=== PATIENT | male | born 1950 | race Caucasian/White ===

== ENCOUNTER 2017-09-13 14:53 | Inpatient (IN) | payer MEDICARE, OTHER ==
[2017-09-13 15:32] LABS: ADD MAN DIFF? NO
[2017-09-13 15:33] LABS: LYMPH % 20 % (24-48); MEAN CORPUSCULAR HEMOGLOBIN 31 pg (25-35); MEAN CORPUSCULAR HGB CONC 34 g/dL (31-37); MEAN CORPUSCULAR VOLUME 92 fL (79-100); NEUT % 67 % (31-73); PLATELET COUNT 129 x10^3/uL (140-400); RED BLOOD COUNT 3.27 x10^6/uL (4.30-5.70); RED CELL DISTRIBUTION WIDTH 12.5 % (11.5-14.5); WHITE BLOOD COUNT 5.4 x10^3/uL (4.0-11.0)
[2017-09-13 15:34] LABS: BASO # 0.1 x10^3/uL (0.0-0.2); BASO % 1 % (0-3); EOS # 0.2 x10^3/uL (0.0-0.7); EOS % 3 % (0-3); LYMPH # 1.1 x10^3/uL (1.0-4.8); MONO # 0.5 x10^3/uL (0.0-1.1); MONO % 9 % (0-9); NEUT # 3.6 x10^3uL (1.8-7.7)
[2017-09-13 15:37] LABS: BILIRUBIN,URINE NEGATIVE (NEG); CLARITY,URINE CLEAR; COLOR,URINE YELLOW; GLUCOSE,URINE NEGATIVE (NEG); NITRITE,URINE NEGATIVE (NEG); PH,URINE 5.5; PROTEIN,URINE NEGATIVE (NEG-TRACE); UROBILINOGEN,URINE 0.2 mg/dL (0.2 mg/dL)
[2017-09-13 15:44] LABS: ANION GAP 13 (6-14); BLOOD UREA NITROGEN 81 mg/dL (8-26); BUN/CREATININE RATIO 25 (6-20); CALCIUM 8.8 mg/dL (8.5-10.1); CARBON DIOXIDE 19 mmol/L (21-32); CHLORIDE 102 mmol/L (98-107); CREATININE 3.2 mg/dL (0.7-1.3); GFR 19.5; GLUCOSE 85 mg/dL (70-99); POTASSIUM 5.7 mmol/L (3.5-5.1); SODIUM 134 mmol/L (136-145)
[2017-09-13 15:51] LABS: ALBUMIN 3.7 g/dL (3.4-5.0); ALBUMIN/GLOBULIN RATIO 0.9 (1.0-1.7); ALK PHOS 61 U/L (46-116); ALT (SGPT) 25 U/L (16-63); AST (SGOT) 18 U/L (15-37); TOTAL BILIRUBIN 0.3 mg/dL (0.2-1.0); TOTAL PROTEIN 7.9 g/dL (6.4-8.2)
[2017-09-13 15:52] LABS: WBC,URINE 0 /HPF (0-4)
[2017-09-13 15:53] LABS: BACTERIA,URINE 0 /HPF (0-FEW); SQUAMOUS EPITHELIAL CELL,UR FEW /LPF
[2017-09-13] MEDS ORDERED: MORPHINE SULFATE 4 MG/ML DISP.SYRIN. IV (16:45)
[2017-09-13] MEDS: IV NORMAL SALINE 1000ML BAG 1,000 ML IV ×2 (16:45→23:13)
[2017-09-13] MEDS ORDERED: ONDANSETRON PF 4 MG/2 ML VIAL. IV (16:45)
[2017-09-13] MEDS ORDERED: DEXTROSE 50% 25 GM / 50ML DISP.SYRIN. IV (18:30)
[2017-09-13] MEDS: INSULIN LISPRO 300 UNITS/3 ML INSULN.PEN. SQ (19:00)
[2017-09-13 19:35] LABS: THYROID STIM HORMONE (TSH) 2.436 uIU/mL (0.358-3.74)
[2017-09-13 21:25] LABS: POC GLUCOSE 95 mg/dL (70-99)
[2017-09-13] MEDS: traMADol 50 MG TABLET PO (22:39)
[2017-09-13] MEDS: LACTOBACILLUS RHAMNOSUS GG 1 CAPSULE. PO (22:39)
[2017-09-13] MEDS: ATORVASTATIN CALCIUM 10 MG TABLET. PO (22:39)
[2017-09-13] MEDS: GABAPENTIN 100 MG CAPSULE. PO (22:39)
[2017-09-13] MEDS: ACETAMINOPHEN 500 MG TABLET PO (22:39)
[2017-09-14] MEDS: LEVOTHYROXINE 137 MCG TABLET PO (05:53)
[2017-09-14 06:19] LABS: ADD MAN DIFF? NO
[2017-09-14 06:36] LABS: ANION GAP 10 (6-14); BLOOD UREA NITROGEN 74 mg/dL (8-26); CALCIUM 8.4 mg/dL (8.5-10.1); CARBON DIOXIDE 20 mmol/L (21-32); CHLORIDE 104 mmol/L (98-107); GLUCOSE 85 mg/dL (70-99); SODIUM 134 mmol/L (136-145)
[2017-09-14 06:40] LABS: BASO # 0.1 x10^3/uL (0.0-0.2); BASO % 1 % (0-3); EOS # 0.2 x10^3/uL (0.0-0.7); EOS % 3 % (0-3); HEMATOCRIT 28.5 % (39.0-53.0); HEMOGLOBIN 9.7 g/dL (13.0-17.5); LYMPH # 1.4 x10^3/uL (1.0-4.8); LYMPH % 23 % (24-48); MEAN CORPUSCULAR HEMOGLOBIN 31 pg (25-35); MEAN CORPUSCULAR HGB CONC 34 g/dL (31-37); MEAN CORPUSCULAR VOLUME 91 fL (79-100); MONO # 0.7 x10^3/uL (0.0-1.1); MONO % 11 % (0-9); NEUT % 62 % (31-73); PLATELET COUNT 121 x10^3/uL (140-400); RED BLOOD COUNT 3.12 x10^6/uL (4.30-5.70); RED CELL DISTRIBUTION WIDTH 12.4 % (11.5-14.5); WHITE BLOOD COUNT 6.4 x10^3/uL (4.0-11.0)
[2017-09-14] MEDS: INSULIN LISPRO 300 UNITS/3 ML INSULN.PEN. SQ ×3 (07:37→17:00)
[2017-09-14 07:41] LABS: POC GLUCOSE 77 mg/dL (70-99)
[2017-09-14] MEDS: GABAPENTIN 100 MG CAPSULE. PO ×3 (08:50→20:17)
[2017-09-14] MEDS: FLUoxetine HCL 20 MG CAPSULE PO (08:50)
[2017-09-14] MEDS: amLODIPine BESYLATE 10 MG TABLET PO (08:50)
[2017-09-14] MEDS: ACETAMINOPHEN 500 MG TABLET PO ×2 (08:51→20:17)
[2017-09-14] MEDS: TAMSULOSIN 0.4 MG CAP.ER.24H. PO (08:51)
[2017-09-14] MEDS: LACTOBACILLUS RHAMNOSUS GG 1 CAPSULE. PO ×2 (08:51→20:16)
[2017-09-14] MEDS: SODIUM POLYSTYRENE SULFONATE 15 GM/60 ML ORAL.SUSP. PO (10:55)
[2017-09-14 11:14] LABS: POC GLUCOSE 92 mg/dL (70-99)
[2017-09-14] MEDS: ALBUTEROL SULFATE 2.5 MG/3 ML NEBU. NEB (11:26)
[2017-09-14] MEDS: IV NORMAL SALINE 1000ML BAG 1,000 ML IV ×2 (12:50→21:55)
[2017-09-14] MEDS ORDERED: hydrALAZINE 20 MG/ML VIAL. IVP (13:15)
[2017-09-14] MEDS: traMADol 50 MG TABLET PO (13:57)
[2017-09-14 16:52] LABS: POC GLUCOSE 115 mg/dL (70-99)
[2017-09-14] MEDS: ATORVASTATIN CALCIUM 10 MG TABLET. PO (20:17)
[2017-09-15] MEDS: traMADol 50 MG TABLET PO ×2 (02:10→20:52)
[2017-09-15 02:19] LABS: HEMOGLOBIN A1C 4.6 % (4.8-5.6)
[2017-09-15 04:11] LABS: ANION GAP 10 (6-14); BLOOD UREA NITROGEN 56 mg/dL (8-26); CALCIUM 8.5 mg/dL (8.5-10.1); CARBON DIOXIDE 20 mmol/L (21-32); CHLORIDE 106 mmol/L (98-107); CREATININE 2.2 mg/dL (0.7-1.3); GFR 30.1; GLUCOSE 90 mg/dL (70-99); SODIUM 136 mmol/L (136-145)
[2017-09-15] MEDS: LEVOTHYROXINE 137 MCG TABLET PO (05:37)
[2017-09-15 07:39] LABS: POC GLUCOSE 84 mg/dL (70-99)
[2017-09-15] MEDS: LACTOBACILLUS RHAMNOSUS GG 1 CAPSULE. PO ×2 (07:58→20:51)
[2017-09-15] MEDS: amLODIPine BESYLATE 10 MG TABLET PO (07:58)
[2017-09-15] MEDS: ACETAMINOPHEN 500 MG TABLET PO ×3 (07:58→20:52)
[2017-09-15] MEDS: TAMSULOSIN 0.4 MG CAP.ER.24H. PO (07:58)
[2017-09-15] MEDS: FLUoxetine HCL 20 MG CAPSULE PO (07:58)
[2017-09-15] MEDS: GABAPENTIN 100 MG CAPSULE. PO ×3 (07:59→20:51)
[2017-09-15] MEDS: IV NORMAL SALINE 1000ML BAG 1,000 ML IV ×2 (07:59→17:54)
[2017-09-15] MEDS: INSULIN LISPRO 300 UNITS/3 ML INSULN.PEN. SQ ×3 (07:59→17:00)
[2017-09-15 11:13] LABS: POC GLUCOSE 81 mg/dL (70-99)
[2017-09-15 16:27] LABS: POC GLUCOSE 96 mg/dL (70-99)
[2017-09-15 20:46] LABS: POC GLUCOSE 100 mg/dL (70-99)
[2017-09-15] MEDS: ATORVASTATIN CALCIUM 10 MG TABLET. PO (20:51)
[2017-09-16] MEDS: IV NORMAL SALINE 1000ML BAG 1,000 ML IV ×2 (03:00→13:00)
[2017-09-16 04:44] LABS: ANION GAP 9 (6-14); BLOOD UREA NITROGEN 37 mg/dL (8-26); CALCIUM 8.6 mg/dL (8.5-10.1); CARBON DIOXIDE 21 mmol/L (21-32); CHLORIDE 108 mmol/L (98-107); CREATININE 1.9 mg/dL (0.7-1.3); GFR 35.6; GLUCOSE 87 mg/dL (70-99); POTASSIUM 5.2 mmol/L (3.5-5.1); SODIUM 138 mmol/L (136-145)
[2017-09-16] MEDS: LEVOTHYROXINE 137 MCG TABLET PO (06:29)
[2017-09-16 07:50] LABS: POC GLUCOSE 79 mg/dL (70-99)
[2017-09-16] MEDS: INSULIN LISPRO 300 UNITS/3 ML INSULN.PEN. SQ ×2 (08:00→11:49)
[2017-09-16] MEDS: TAMSULOSIN 0.4 MG CAP.ER.24H. PO (08:21)
[2017-09-16] MEDS: GABAPENTIN 100 MG CAPSULE. PO ×2 (08:22→15:12)
[2017-09-16] MEDS: ACETAMINOPHEN 500 MG TABLET PO ×2 (08:23→15:11)
[2017-09-16] MEDS: traMADol 50 MG TABLET PO (08:24)
[2017-09-16] MEDS: FLUoxetine HCL 20 MG CAPSULE PO (08:25)
[2017-09-16] MEDS: amLODIPine BESYLATE 10 MG TABLET PO (08:25)
[2017-09-16] MEDS: LACTOBACILLUS RHAMNOSUS GG 1 CAPSULE. PO (08:26)
[2017-09-16] MEDS: FUROSEMIDE 20 MG TABLET PO (11:18)
[2017-09-16 11:46] LABS: POC GLUCOSE 84 mg/dL (70-99)
[2017-09-17] MEDS ORDERED: amLODIPine BESYLATE 5 MG TABLET PO (09:00)
[2017-09-19] MEDS ORDERED: ERGOCALCIFEROL (VITAMIN D2) 50,000 UNIT CAPSULE. PO (09:00)
== END 2017-09-16 17:00 | disposition home or self-care (01) | DRG 683 ==
LOC: ER 14:53 → 5 NORTH 16:23
DX: N17.0 Acute kidney failure with tubular necrosis (principal); I50.32 Chronic diastolic (congestive) heart failure; Z68.43 Body mass index [BMI] 50.0-59.9, adult; E87.5 Hyperkalemia; I11.0 Hypertensive heart disease with heart failure; E66.01 Morbid (severe) obesity due to excess calories; E03.9 Hypothyroidism, unspecified; E11.42 Type 2 diabetes mellitus with diabetic polyneuropathy; N40.0 Benign prostatic hyperplasia without lower urinary tract symptoms; E78.00 Pure hypercholesterolemia, unspecified; E78.5 Hyperlipidemia, unspecified; F32.9 Major depressive disorder, single episode, unspecified; G47.33 Obstructive sleep apnea (adult) (pediatric); I25.10 Atherosclerotic heart disease of native coronary artery without angina pectoris; I89.0 Lymphedema, not elsewhere classified; M19.90 Unspecified osteoarthritis, unspecified site; R00.1 Bradycardia, unspecified; Z90.89 Acquired absence of other organs; Z88.0 Allergy status to penicillin
CPT/HCPCS: 36415; 76770; 80048; 80053; 81001; 82962; 83036; 84443; 85025; 93005; 94660; 99285; 99285-25; J1815; J7030; J7613

== ENCOUNTER 2021-07-10 09:56 | Day surgery (SDC) | payer MEDICARE ==
[~2021-07-10] VITALS: Ht 185.4 cm; Wt 249.5 kg
[~2021-07-10 09:56] MED LIST: ACET500T33 PO; AMLO-187 PO; CARV3.1210 PO; CARV6.2511 PO; CHOL500021 PO; CIPROFLOXACIN 0.3% OPHTH SOLUTION 5ML BOTTLE. OD ONE; FLUO20TA11 PO; FURO20TA3 PO; FURO40TA4 PO; GABA-585 PO; HYDROmorphone 2 MG/ML INJ. IVP PRN; IBUP-1670 PO; IV RINGERS,LACTATED 1000ML 1,000 ML IV SCH; LACT1CAP19 PO; LEVO137T3 PO; LIDOCAINE 2% JELLY 6ML IN APPLICATOR. OD ONE; LOSA-73 PO; METO2.5T PO; MIRA25TA PO; MORPHINE SULFATE 2 MG/ML INJ. IVP PRN; POTA-121 PO; PRAV40TA2 PO; PROCHLORPERAZINE 10 MG/2 ML VIAL. IVP PRN; PROPARACAINE 0.5% OPHTH SOLUTION 15ML BOTTLE. OD ONE; SITA1TAB7 PO; TAMS0.4C2 PO; TERB250T72 PO; TRAM50TA PO; fentaNYL PF VIAL 100 MCG/2 ML VIAL IVP PRN
[2021-07-10 10:27] VITALS: BP 147/67
[2021-07-10] MEDS: CYCLOPENTOLATE 1% OPHTH SOLUTION 2ML BOTTLE. OD SCH ×2 (10:38→10:44)
[2021-07-10] MEDS: PHENYLEPHRINE 10% OPHTH SOLUTION 5ML BOTTLE. OD SCH ×2 (10:38→10:45)
[2021-07-10] MEDS ORDERED: CHONDROITIN-SOD-HYALURONATE 0.5 ML DISP.SYRIN. ONE (11:00)
[2021-07-10] MEDS ORDERED: CHONDROIT-SOD-HYALURONATE KIT. ONE (11:00)
[2021-07-10] MEDS ORDERED: NEO/POLYMYX/DEXAMETH OPHTH OINTMENT 3.5GM TUBE. ONE (11:00)
[2021-07-10] MEDS ORDERED: LIDOCAINE 1%/PHENYLEPH 1.5% PF OPHTH 1 ML VIAL. ONE (11:00)
[2021-07-10 13:25] VITALS: BP 131/61
[2021-07-10] MEDS ORDERED: acetaZOLAMIDE 250 MG TABLET. PO ONE (13:30)
--- NOTE | 2021-07-10 13:41 | OP ---
DATE OF SURGERY: 07/10/2021 PREOPERATIVE DIAGNOSES: 1. 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 2. Cataract of the right eye. PROCEDURE: Phacoemulsification with posterior chamber intraocular lens implantation of the right eye with stretching of the pupil due to miosis. SURGEON: García Crisostomo M.D. ANESTHESIA: Topical with monitored anesthesia care. DESCRIPTION OF PROCEDURE: The right eye had been administered 10% Deng-Synephrine numerous times without further dilation of 4.5 mm. The left eye was then prepped with Betadine in the usual sterile fashion and draped. A paracentesis was made followed by instillation of preservative-free phenylephrine admixed with lidocaine and balanced salt solution. A temporal clear corneal incision was made followed by instillation of Viscoat. A capsulorrhexis was then created larger than the pupillary margin for adequate nucleus removal. Hydrodissection was carried out followed by the nucleus removal in a modified stop and chop fashion. The I/A handpiece was used to remove the cortex and there was some subincisional and inferior adherent cortex that was attempted to be removed with a [place] cannula, but was done with a cap VAC setting on the I/A tip. The capsulorrhexis margin was not visible at this point and so Provisc was placed in the presumed capsular bag as was the lens, which was Chidi model SN60WF with a power of 17.0 diopters. A collar button hook was then used to sweep the iris throughout 360 degrees to ensure that the lens was within the bag. There was some prolapse of the iris at the wound, which was reposited with a cannula. A balanced salt solution was used to aggressively hydrate the corneal wounds and the viscoelastic evacuated with the I/A handpiece. Once no leak was noted and the iris was repositioned, Maxitrol was placed on the eye and the eye shielded and the patient was sent to the recovery room uneventfully. WILLIAM DR: Eliana TID: [id number]
== END 2021-07-10 13:38 | disposition home or self-care (01) ==
LOC: SURG 09:56
PROVIDERS: ATTEND Ophthalmology
DX: E11.36 Type 2 diabetes mellitus with diabetic cataract (principal); H57.03 Miosis; S05.21XA Ocular laceration and rupture with prolapse or loss of intraocular tissue, right eye, initial encounter; I10 Essential (primary) hypertension; E78.00 Pure hypercholesterolemia, unspecified; I25.10 Atherosclerotic heart disease of native coronary artery without angina pectoris; E03.9 Hypothyroidism, unspecified; G47.30 Sleep apnea, unspecified; E66.9 Obesity, unspecified; M19.90 Unspecified osteoarthritis, unspecified site; F41.9 Anxiety disorder, unspecified; F32.9 Major depressive disorder, single episode, unspecified; Z72.89 Other problems related to lifestyle; Z98.890 Other specified postprocedural states; Z88.0 Allergy status to penicillin; Z79.899 Other long term (current) drug therapy; X58.XXXA Exposure to other specified factors, initial encounter; Y93.89 Activity, other specified; Y92.89 Other specified places as the place of occurrence of the external cause; Y99.8 Other external cause status
CPT/HCPCS: 66982; J0171; J0690; J1580; J3490; V2632

== ENCOUNTER 2021-07-17 10:53 | Day surgery (SDC) | payer MEDICARE ==
[~2021-07-17] VITALS: Ht 195.6 cm; Wt 250.0 kg
[~2021-07-17 10:53] MED LIST changes: +CHONDROIT-SOD-HYALURONATE KIT. ONE; +CHONDROITIN-SOD-HYALURONATE 0.5 ML DISP.SYRIN. ONE; -CIPROFLOXACIN 0.3% OPHTH SOLUTION 5ML BOTTLE. OD ONE; +CIPROFLOXACIN 0.3% OPHTH SOLUTION 5ML BOTTLE. OS ONE; +LIDOCAINE 1%/PHENYLEPH 1.5% PF OPHTH 1 ML VIAL. ONE; -LIDOCAINE 2% JELLY 6ML IN APPLICATOR. OD ONE; +LIDOCAINE 2% JELLY 6ML IN APPLICATOR. OS ONE; +NEO/POLYMYX/DEXAMETH OPHTH OINTMENT 3.5GM TUBE. ONE; -PROPARACAINE 0.5% OPHTH SOLUTION 15ML BOTTLE. OD ONE; +PROPARACAINE 0.5% OPHTH SOLUTION 15ML BOTTLE. OS ONE
[2021-07-17] MEDS ORDERED: GENTAMICIN SULFATE/PF 4 MG, EPINEPHrine 0.5 MG in BALANCED SALT IRR SOLN (BAG) 500 ML IO ONE (11:00)
[2021-07-17 11:21] VITALS: BP 145/67
[2021-07-17] MEDS: CYCLOPENTOLATE 1% OPHTH SOLUTION 2ML BOTTLE. OS SCH ×3 (11:27→11:40)
[2021-07-17] MEDS: PHENYLEPHRINE 10% OPHTH SOLUTION 5ML BOTTLE. OS SCH ×3 (11:27→11:39)
[2021-07-17] MEDS ORDERED: MIDAZOLAM HCL/PF 2 MG/2 ML VIAL. ONE (12:15)
[2021-07-17] MEDS ORDERED: acetaZOLAMIDE 250 MG TABLET. PO ONE (13:00)
[2021-07-17 13:30] VITALS: BP 137/59
--- NOTE | 2021-07-17 14:03 | OP ---
DATE OF SURGERY: 07/17/2021 PREOPERATIVE DIAGNOSES: 1. Cataract of the left eye. 2. Miosis or small pupil of the left eye. SURGEON: García Crisostomo MD ANESTHESIA: Topical with monitored anesthesia care. OPERATION: Phacoemulsification with posterior chamber intraocular lens implantation with pupil manipulation. DESCRIPTION OF PROCEDURE: The left eye was prepped with Betadine in the usual sterile fashion and draped. A paracentesis was performed followed by instillation of preservative-free phenylephrine admixed with lidocaine and balanced salt solution. The pupil did not dilate beyond 4.5 to 5 mm. A temporal clear corneal incision was made followed by Viscoat and a capsulorrhexis was done that was made larger than the pupillary opening. Hydrodissection was done and the nucleus prolapsed at the pupillary plane. Viscoat was placed both anterior and posterior to the nucleus and it was evacuated with the phacoemulsification handpiece. The I/A handpiece was used to remove the remainder of the cortex. Provisc was injected in the capsular bag and an Chidi model SN60WF with a power of 18.5 diopters was placed into the capsular bag. This was presumably done so since the capsulorrhexis margin was not fully visualized. A collar button hook was then used to sweep the iris in a 360-degree fashion to ensure that the lens was in fact within the capsular bag. Once this had been done, balanced salt solution was used to hydrate the corneal wounds and the viscoelastic evacuated with the I/A handpiece. Once no leak was noted, Maxitrol was placed on the eye and the eye shielded and the patient was sent to the recovery room uneventfully. KELSEY/GRACIE DR: Eliana TID: [id number]
== END 2021-07-17 13:45 | disposition home or self-care (01) ==
LOC: SURG 10:53
PROVIDERS: ATTEND Ophthalmology
DX: E11.36 Type 2 diabetes mellitus with diabetic cataract (principal); H25.89 Other age-related cataract; H57.03 Miosis; I25.10 Atherosclerotic heart disease of native coronary artery without angina pectoris; I12.9 Hypertensive chronic kidney disease with stage 1 through stage 4 chronic kidney disease, or unspecified chronic kidney disease; E11.22 Type 2 diabetes mellitus with diabetic chronic kidney disease; N18.9 Chronic kidney disease, unspecified; E78.00 Pure hypercholesterolemia, unspecified; N40.0 Benign prostatic hyperplasia without lower urinary tract symptoms; M19.90 Unspecified osteoarthritis, unspecified site; F41.9 Anxiety disorder, unspecified; F32.9 Major depressive disorder, single episode, unspecified; G47.30 Sleep apnea, unspecified; E66.9 Obesity, unspecified; Z72.89 Other problems related to lifestyle; Z88.0 Allergy status to penicillin; Z79.899 Other long term (current) drug therapy; Z98.890 Other specified postprocedural states
CPT/HCPCS: 66982; J0171; J1580; J2250; J3490; V2632